=== PATIENT | female | born 1995 | race Asian ===

== ENCOUNTER 2017-02-11 10:42 | Outpatient (CLI) | payer MEDICAID | END 2017-02-11 10:43 | disposition home or self-care (01) | DX: R53.83 Other fatigue (principal) ==

== ENCOUNTER 2017-12-24 21:52 | Emergency (ER) | payer MEDICAID ==
[2017-12-24 21:59] VITALS: BP 116/75
[2017-12-24 22:17] LABS: HCG UR QUAL NEGATIVE
[2017-12-24] MEDS ORDERED: HYDROcod/ACETAM 5/325 MG TABLET PO STA (22:36)
[2017-12-24] MEDS ORDERED: AMOXICILLIN 250 MG CAPSULE PO STA (22:36)
[2017-12-24] MEDS ORDERED: DEXAMETHASONE 10 MG/ML VIAL PO STA (22:36)
--- NOTE | 2017-12-24 22:39 | ED Physician Documentation ---
PD HPI URI - Stated complaint Stated Complaint: SORE THROAT - Chief complaint Chief Complaint: Heent - History obtained from History obtained from: Patient - History of Present Illness Timing - onset: How many days ago (2-3) Timing duration: Days (2-3) Timing details: Gradual onset, Still present (worsening) Associated symptoms: Fever, Sore throat, Swollen nodes. No: Nasal congestion, Dry cough, NVD Contributing factors: No: Sick contact, Travel, Immunocompromised Similar symptoms before: Has not had sx before Recently seen: Not recently seen Review of Systems Constitutional: reports: Fever, Chills, Myalgias Nose: denies: Rhinorrhea / runny nose, Congestion Throat: reports: Sore throat, Swollen tonsils Respiratory: denies: Dyspnea, Cough PD PAST MEDICAL HISTORY - Past Medical History Past Medical History: No - Past Surgical History Past Surgical History: Yes - Present Medications Home Medications: Ambulatory Orders Medication Instructions Recorded Confirmed Amoxicillin 500 mg PO TID #20 capsule 12/24/17 Dexamethasone [Decadron] 4 mg PO DAILY #5 tablet 12/24/17 Tramadol HCl 50 mg PO Q6H PRN #15 tablet 12/24/17 - Allergies Allergies/Adverse Reactions: Allergies Allergy/AdvReac Type Severity Reaction Status Date / Time No Known Drug Allergies Allergy Verified 12/24/17 21:58 - Social History Does the pt smoke?: No Smoking Status: Never smoker Does the pt drink ETOH?: No Does the pt have substance abuse?: No - Immunizations Immunizations are current?: Yes - POLST Patient has POLST: No PD ED PE NORMAL - Vitals Vital signs reviewed: Yes - General General: Alert and oriented X 3, No acute distress, Well developed/nourished - HEENT HEENT: No: Pharynx benign (red and exudative tonsils, witout peritonsillar swelling. ) - Neck Neck: Supple, no meningeal sign, Other (anterior adenopathy) - Cardiac Cardiac: RRR, No murmur - Respiratory Respiratory: Clear bilaterally - Abdomen Abdomen: Soft, Non tender - Derm Derm: Normal color, Warm and dry, No rash - Extremities Extremities: No deformity, No tenderness to palpate, Normal ROM s pain Results - Vitals Vitals: Oxygen O2 Source Room air - Labs Labs: Laboratory Tests 12/24/17 12/24/17 22:00 22:00 Ur Specific Ronan 1.015 Urine HCG, Qual NEGATIVE Group A Strep Rapid POSITIVE H PD MEDICAL DECISION MAKING - ED course Complexity details: reviewed results (positive strep), considered differential, d/w patient Departure - Departure Disposition: 01 Home, Self Care Clinical Impression: Acute streptococcal tonsillitis Qualifiers: Streptococcal tonsillitis recurrence: non-recurrent Qualified Code(s): J03.00 - Acute streptococcal tonsillitis, unspecified Condition: Stable Record reviewed to determine appropriate education?: Yes Instructions: ED Strep Pharyngitis Conf Prescriptions: Amoxicillin 500 mg PO TID #20 capsule Dexamethasone [Decadron] 4 mg PO DAILY #5 tablet Tramadol HCl 50 mg PO Q6H PRN #15 tablet PRN Reason: Pain Comments: Drink lots of fluids. Tylenol or ibuprofen if needed for mild pains. At tramadol if needed for worse pain. Decadron steroid anti-inflammatory daily for 5 more days to decrease the swelling and discomfort. Amoxicillin 3 times a day for a week for the infection. It is okay to resume work after a full day on the antibiotics. Off work tomorrow and the next day if needed based on symptoms. Recheck if not improving well over the next few days. Forms: Activity restrictions Discharge Date/Time: 12/24/17 22:51
== END 2017-12-24 22:51 | disposition home or self-care (01) ==
LOC: ED 21:52
DX: J03.00 Acute streptococcal tonsillitis, unspecified (principal)
CPT/HCPCS: 81025; 87430; 99283; A9270

== ENCOUNTER 2018-04-07 10:13 | Emergency (ER) | payer MEDICAID ==
[2018-04-07] MEDS ORDERED: DEXAMETHASONE 10 MG/ML VIAL PO STA (13:27)
--- NOTE | 2018-04-07 13:30 | ED Physician Documentation ---
PD HPI HEENT - Stated complaint Stated Complaint: SORE THROAT - Chief complaint Chief Complaint: Heent - History obtained from History obtained from: Patient, Family - History of Present Illness Timing - onset: How many days ago (2) Timing - duration: Days (2) Timing - details: Gradual onset, Still present Location: Throat Improves: Medication Worsens: Swalllowing Associated symptoms: Congestion, Unable to swallow, Swollen nodes Similar symptoms before: Diagnosis (strep) Recently seen: Not recently seen - Additional information Additional information: 23-year-old female with a history of recurrent pharyngitis has a sore throat again with swollen tonsils and difficulty swallowing. She has had symptoms for about 2 days. She has chills. She denies any cough. She has had strep most recently in November of this year. Review of Systems Constitutional: reports: Chills, Fatigue Eyes: denies: Decreased vision Ears: denies: Ear pain Nose: reports: Congestion Throat: reports: Sore throat Cardiac: denies: Chest pain / pressure, Palpitations Respiratory: denies: Dyspnea, Cough GI: denies: Abdominal Pain, Nausea, Vomiting : denies: Dysuria, Frequency PD PAST MEDICAL HISTORY - Past Medical History Past Medical History: No - Past Surgical History Past Surgical History: Yes - Present Medications Home Medications: Ambulatory Orders Medication Instructions Recorded Confirmed Amox/Clav 875/125 [Augmentin 1 each PO Q12H #20 tablet 04/07/18 875/125] - Allergies Allergies/Adverse Reactions: Allergies Allergy/AdvReac Type Severity Reaction Status Date / Time No Known Drug Allergies Allergy Verified 12/24/17 21:58 - Social History Does the pt smoke?: No Smoking Status: Never smoker Does the pt drink ETOH?: No Does the pt have substance abuse?: No - Immunizations Immunizations are current?: Yes - POLST Patient has POLST: No PD ED PE NORMAL - Vitals Vital signs reviewed: Yes (hypertensive diastolic ) - General General: Alert and oriented X 3, No acute distress, Well developed/nourished - HEENT HEENT: Atraumatic, PERRL, EOMI, Ears normal, Other (There are 2+ cryptic tonsils with exudate. ) - Neck Neck: Supple, no meningeal sign, No bony TTP - Cardiac Cardiac: RRR, No murmur - Respiratory Respiratory: No respiratory distress, Clear bilaterally - Abdomen Abdomen: Soft, Non tender - Back Back: No CVA TTP, No spinal TTP - Derm Derm: Normal color, Warm and dry, No rash - Extremities Extremities: No deformity, No edema - Neuro Neuro: Alert and oriented X 3, No motor deficit, No sensory deficit, Normal speech Eye Opening: Spontaneous Motor: Obeys Commands Verbal: Oriented GCS Score: 15 - Psych Psych: Normal mood, Normal affect Results - Vitals Vitals: Vital Signs - 24 hr 04/07/18 10:33 Temperature 37.0 C Heart Rate 89 Respiratory 18 Rate Blood Pressure 115/89 H O2 Saturation 97 Oxygen O2 Source Room air - Labs Labs: Laboratory Tests 04/07/18 13:17 Group A Strep Rapid POSITIVE H PD MEDICAL DECISION MAKING - ED course Complexity details: reviewed results, re-evaluated patient, considered differential, d/w patient, d/w family ED course: 23 y/o female with a history of strep has another sore throat. She has a lot of exudate. - Sepsis Event Vital Signs: Vital Signs - 24 hr 04/07/18 10:33 Temperature 37.0 C Heart Rate 89 Respiratory 18 Rate Blood Pressure 115/89 H O2 Saturation 97 Oxygen O2 Source Room air Departure - Departure Disposition: 01 Home, Self Care Clinical Impression: Acute streptococcal tonsillitis Qualifiers: Streptococcal tonsillitis recurrence: recurrent Qualified Code(s): J03.01 - Acute recurrent streptococcal tonsillitis Instructions: ED Strep Pharyngitis Conf Follow-Up: [facility] [Provider Group] Prescriptions: Amox/Clav 875/125 [Augmentin 875/125] 1 each PO Q12H #20 tablet Forms: Activity restrictions
[2018-04-07 14:18] VITALS: BP 105/69
== END 2018-04-07 14:17 | disposition home or self-care (01) ==
LOC: ED 10:13
DX: J03.01 Acute recurrent streptococcal tonsillitis (principal)
CPT/HCPCS: 87430; 99283

== ENCOUNTER 2018-05-18 08:47 | Outpatient (CLI) | payer MEDICAID ==
--- NOTE | 2018-05-18 10:54 | Ultrasound Report ---
Procedure Date: 05/18/2018 Accession Number: [id number] / [id number] Procedure: US - OB First Trimester CPT Code: FULL RESULT: EXAM: FIRST TRIMESTER OBSTETRIC ULTRASOUND (Less than 11 weeks) EXAM DATE: 05/18/2018 10:25 AM. CLINICAL HISTORY: ENCOUNTER FOR TEST, RESULT POSITIVE. LMP: 03/18/2018. COMPARISONS: None. TECHNIQUE: Transabdominal and transvaginal ultrasound examination with static image documentation. CLINICAL DATES: EGA 8 weeks 5 days with MAME 12/23/2018 based on LMP. ASSESSMENT: Gestational Sac: Single intrauterine. Mean gestational sac diameter: 31.4 mm = 8 weeks 0 days. Embryo: CRL (crown-rump length) 15.8 mm = 8 weeks 0 days. Cardiac activity: 161 beats per minute. Yolk sac: 3.1 mm. Amniotic fluid: Not accurately assessed at this gestational age. Early placenta: Not visible at this gestational age. Other: No perigestational fluid collection demonstrated. MATERNAL STRUCTURES: Uterus: Anteverted. Unremarkable. Cervix: Closed. Right Ovary/Adnexa: Unremarkable. The ovary measures 3.9 x 2.9 x 1.8 cm, volume 10.6 cc. Left Ovary/Adnexa: Unremarkable. The ovary measures 3.3 x 2.7 x 2.6 cm, volume 12.1 cc. 1.8 x 1.3 x 1.4 cm corpus luteum cyst Free Fluid: None. Other: Incidental note made of a possible 4 mm umbilical cord cyst.. IMPRESSION: 1. Single intrauterine at EGA 8 weeks 0 days with MAME 12/28/2018 based on crown-rump length, which is concordant with clinical dates. 2. Assigned dating is MAME 12/23/2018 based on LMP. CALI
== END 2018-05-18 08:48 | disposition home or self-care (01) ==
LOC: DI 08:47
PROVIDERS: ATTEND Nurse Practitioner Obstetrics & Gynecology
DX: Z32.01 Encounter for pregnancy test, result positive (principal)
CPT/HCPCS: 76801; 76817

== ENCOUNTER 2018-05-29 10:08 | Outpatient (CLI) | payer MEDICAID ==
[2018-05-29 15:11] LABS: MUDS CUTOFF CONCENTRATIONS CUTOFF CONC BELOW:
[2018-05-29 15:36] LABS: AMPHETAMINE SCREEN,URINE NEGATIVE (NEGATIVE); BENZODIAZEPINES SCREEN, URINE NEGATIVE (NEGATIVE); COCAINE SCREEN URINE NEGATIVE (NEGATIVE); METHADONE SCREEN, URINE NEGATIVE (NEGATIVE); METHAMPHETAMINES SCREEN, URINE NEGATIVE (NEGATIVE); OPIATE SCREEN, URINE NEGATIVE (NEGATIVE); OXYCODONE SCREEN, URINE NEGATIVE (NEGATIVE); PROPOXYPHENE SCREEN, URINE NEGATIVE (NEGATIVE); TRICYCLIC ANTIDEPRESSANT,URINE NEGATIVE (NEGATIVE)
== END 2018-05-29 10:09 | disposition home or self-care (01) ==
LOC: LAB.R 10:08
PROVIDERS: ATTEND Nurse Practitioner Obstetrics & Gynecology
DX: Z36.9 Encounter for antenatal screening, unspecified (principal)
CPT/HCPCS: 80306

== ENCOUNTER 2018-06-16 10:02 | Outpatient (CLI) | payer MEDICAID ==
[2018-06-16 10:33] LABS: BASOPHILS % (AUTO) 0.4 %; EOSINOPHILS % (AUTO) 0.6 %; HGB - HEMOGLOBIN 12.8 g/dL (12.0-16.0); LYMPHOCYTES # (AUTO) 1.2 10^3/uL (1.5-3.5); LYMPHOCYTES % (AUTO) 18.1 %; MEAN CORPUSCULAR HEMOGLOBIN 30.1 pg (27.0-31.0); MEAN CORPUSCULAR VOLUME 88.6 fL (81.0-99.0); MEAN PLATELET VOLUME 8.5 fL (7.9-10.8); MONOCYTES # (AUTO) 0.5 10^3/uL (0.0-1.0); MONOCYTES % (AUTO) 8.1 %; NEUTROPHILS # (AUTO) 4.6 10^3/uL (1.5-6.6); NEUTROPHILS % (AUTO) 72.8 %; PLT - PLATELET COUNT 230 10^3/uL (130-450); RED BLOOD COUNT 4.25 10^6/uL (4.20-5.40); RED CELL DISTRIBUTION WIDTH 12.7 % (12.0-15.0); WHITE BLOOD COUNT 6.4 x10^3/uL (4.8-10.8)
[2018-06-16 11:02] LABS: BILIRUBIN,URINE NEGATIVE (NEGATIVE); GLUCOSE, URINE (UA) NEGATIVE (NEGATIVE); KETONES,URINE (UA) NEGATIVE (NEGATIVE); LEUKOCYTE ESTERASE, URINE TRACE (NEGATIVE); NITRITE,URINE NEGATIVE (NEGATIVE); OCCULT BLOOD,URINE TRACE-INTA (NEGATIVE); PH,URINE 6.5 PH (5.0-7.5); PROTEIN,URINE NEGATIVE (NEGATIVE); UROBILINOGEN,URINE 0.2 (NORMAL) E.U./dL (NORMAL)
[2018-06-16 11:07] LABS: CLARITY,URINE HAZY (CLEAR)
[2018-06-16 11:20] LABS: AMORPHOUS SEDIMENT,UR Marked /LPF; BACTERIA,URINE Many /HPF (None Seen); MUCUS,URINE Moderate Strands; RBC,URINE 0-5 /HPF (0-5); SQUAMOUS EPITHELIAL CELL,UR MOD Squamous (<= Few)
[2018-06-17 13:31] LABS: HEPATITIS B SURFACE ANTIGEN NON-REACTIVE (NON-REACTIVE); HEPATITIS C ANTIBODY NON-REACTIVE (NON-REACTIVE)
[2018-06-17 14:47] LABS: HIV AG/AB 4TH GEN NON-REACTIVE (NON-REACTIVE)
== END 2018-06-16 10:03 | disposition home or self-care (01) ==
LOC: LAB 10:02
PROVIDERS: ATTEND Nurse Practitioner Obstetrics & Gynecology
DX: Z36.9 Encounter for antenatal screening, unspecified (principal)
CPT/HCPCS: 36415; 81001; 81599; 85025; 86592; 86762; 86803; 86850; 86900; 86901; 87340; 87389

== ENCOUNTER 2018-08-04 07:23 | Outpatient (CLI) | payer MEDICAID ==
--- NOTE | 2018-08-04 16:15 | Ultrasound Report ---
Reason: ENCOUNTER FOR SCREENING,UNSPECIFIED Procedure Date: 08/04/2018 Accession Number: [id number] / [id number] Procedure: US - OB Detailed Eval CPT Code: FULL RESULT: EXAM: COMPLETE OBSTETRICAL ULTRASOUND EXAM DATE: 08/04/2018 08:00 AM. CLINICAL HISTORY: anatomic survey. COMPARISON: 05/18/2018. TECHNIQUE: Real-time sonographic evaluation of the fetus performed by the service attendant cafeteria. Multiple community representative static images were saved for review. DATING: Established EGA 20 weeks 0 days with MAME 12/23/2018 based on obstetric provider supplied established due date. EGA 19 weeks 1 day with MAME 12/28/2018 based on first trimester ultrasound. EGA 18 weeks 5 days with MAME 12/31/2018 based on the current ultrasound. GENERAL EVALUATION [place] . Cardiac activity: 159 bpm. movement: Visualized. Presentation: Variable Placenta: Anterior position. No evidence for previa. Umbilical cord: Normally originating and inserting cord is identified. Presence of a 3 vessel cord is not definitely established due to motion, visualization was inadequate. Amniotic fluid: RUSS 12.6 MVP 4.4 cm. BIOMETRY Bi-Parietal Diameter (BPD): 4.1 cm, 18 weeks 2 days Head Circumference (HC): 15.6 cm, 18 weeks 3 days Abdominal Circumference (AC): 13.4 cm, 19 weeks 1 day Femur Length (FL): 2.9 cm, 18 weeks 6 days Estimated Weight: 265 g, 9th percentile for 20 weeks 0 days. ANATOMY Facial structures including the nose and lips were not adequately visualized. The intracranial structures, spine, 4 chamber heart and outflow tracts, stomach, abdominal wall and cord insertion, diaphragm, kidneys, bladder, and extremities were visualized and demonstrate no abnormality. MATERNAL STRUCTURES Uterus: Unremarkable. Cervix: Long and closed. Transabdominal length 4.7 cm. Right ovary/adnexa: Unremarkable. Left ovary/adnexa: Unremarkable. Free fluid: None. IMPRESSION: 1. Bet[place] live intrauterine with gestational age 20 weeks 0 days based on the obstetric provider supplied established due date. 2. Estimated weight is at the 9th percentile for the obstetric provider supplied established due date. 3. Incomplete anatomic survey with nonvisualization/inadequate visualization of the facial profile including the lips and nasal bone. Otherwise, normal anatomic survey. No anatomic abnormalities are detected at this time. 4. Incomplete evaluation of the umbilical cord with normal origin and insertion. Presence of 3 vessel cord is not definitely established. Recommendation: The patient could return after 2 weeks time for completion of the anatomic survey and an interval assessment of growth. RADIA The above findings small estimated weight and an incomplete anatomy assessment were discussed with Dina Alfredo by Dr. Sravan Elias at 16:12 hrs on 08/04/18.
== END 2018-08-04 07:24 | disposition home or self-care (01) ==
LOC: DI 07:23
PROVIDERS: ATTEND Nurse Practitioner Obstetrics & Gynecology
DX: Z36.9 Encounter for antenatal screening, unspecified (principal)
CPT/HCPCS: 76811

== ENCOUNTER 2018-08-29 08:48 | Emergency (ER) | payer MEDICAID ==
[2018-08-29 09:01] VITALS: BP 115/70
--- NOTE | 2018-08-29 09:43 | ED Physician Documentation ---
PD HPI URI - Stated complaint Stated Complaint: SORE THROAT - Chief complaint Chief Complaint: Heent - History obtained from History obtained from: Patient - History of Present Illness Timing - onset: How many days ago (few days of congestion and had a fever first day; now with sore throat for a day.) Timing duration: Days Timing details: Gradual onset, Still present Associated symptoms: Fever, Nasal congestion, Sore throat, Swollen nodes, Dry cough Contributing factors: No: Sick contact, Travel Similar symptoms before: Has not had sx before Recently seen: Not recently seen Review of Systems Constitutional: reports: Fever, Chills Nose: reports: Rhinorrhea / runny nose, Congestion Throat: reports: Sore throat Cardiac: denies: Chest pain / pressure GI: reports: Nausea. denies: Abdominal Pain, Vomiting, Diarrhea : reports: Now EGA (23). 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 ) - Past Surgical History Past Surgical History: Yes - Present Medications Home Medications: Ambulatory Orders Medication Instructions Recorded Confirmed Pnv No.122/Iron/Folic Acid 08/29/18 [ Multi Tablet] - Allergies Allergies/Adverse Reactions: Allergies Allergy/AdvReac Type Severity Reaction Status Date / Time No Known Drug Allergies Allergy Verified 08/29/18 09:01 - Social History Does the pt smoke?: No Smoking Status: Never smoker Does the pt drink ETOH?: No Does the pt have substance abuse?: No - Immunizations Immunizations are current?: Yes - POLST Patient has POLST: No PD ED PE NORMAL - Vitals Vital signs reviewed: Yes - General General: Alert and oriented X 3, No acute distress, Well developed/nourished - HEENT HEENT: Ears normal. No: Pharynx benign (tonsils enlarged moderately without exudate. ) - Neck Neck: Supple, no meningeal sign, No adenopathy - Cardiac Cardiac: RRR, No murmur - Respiratory Respiratory: Clear bilaterally - Abdomen Abdomen: Soft, Non tender, Other (gravid with fundus above umbilicus) - Derm Derm: Normal color, Warm and dry - Neuro Neuro: Alert and oriented X 3, No motor deficit, Normal speech Results - Vitals Vitals: Vital Signs - 24 hr 08/29/18 09:00 Temperature 36.9 C Heart Rate 94 Respiratory 18 Rate Blood Pressure 115/70 O2 Saturation 99 Oxygen O2 Source Room air - Labs Labs: Laboratory Tests 08/29/18 09:05 Group A Strep Rapid Negative PD MEDICAL DECISION MAKING - ED course Complexity details: reviewed results (strep negative. presume viral for now. ), re-evaluated patient, considered differential, d/w patient Departure - Departure Disposition: 01 Home, Self Care Clinical Impression: Upper respiratory infection Qualifiers: URI type: unspecified URI Qualified Code(s): J06.9 - Acute upper respiratory infection, unspecified Condition: Stable Record reviewed to determine appropriate education?: Yes Instructions: ED Pharyngitis Viral Report Pending Comments: Drink lots of fluids. Tylenol every 4-6 hours if needed for pains. For now you could use ibuprofen or Aleve as well if needed for pains. No anti- inflammatories after about 30 weeks . Recheck if not improving over the next several days. The throat culture will result in 2 days and we will call you if it positive for bacterial cause. For now will presume a viral ill ness. Discharge Date/Time: 08/29/18 10:05
[2018-08-29] MEDS ORDERED: DEXAMETHASONE 10 MG/ML VIAL PO STA (09:55)
[2018-08-29] MEDS ORDERED: ACETAMINOPHEN 325 MG TABLET PO STA (09:55)
== END 2018-08-29 10:05 | disposition home or self-care (01) ==
LOC: ED 08:48
DX: O99.89 Other specified diseases and conditions complicating pregnancy, childbirth and the puerperium (principal); J06.9 Acute upper respiratory infection, unspecified; Z3A.23 23 weeks gestation of pregnancy
CPT/HCPCS: 87070; 87430; 99282; 99283

== ENCOUNTER 2018-09-08 09:28 | Outpatient (CLI) | payer MEDICAID ==
--- NOTE | 2018-09-08 16:57 | Ultrasound Report ---
Reason: ENCOUNTER FOR OTHER SCREENING FOLLOW UP Procedure Date: 09/08/2018 Accession Number: [id number] / [id number] Procedure: US - OB F/U or Repeat CPT Code: FULL RESULT: EXAM: COMPLETE OBSTETRICAL ULTRASOUND EXAM DATE: 09/08/2018 12:54 PM. CLINICAL HISTORY: anatomic survey, completion of. COMPARISON: 08/04/2018. TECHNIQUE: Real-time sonographic evaluation of the fetus performed by the manager flight operations. Multiple insurance representative static images were saved for review. DATING: Established EGA 24 weeks 6 days with MAME 12/23/2018 based on referring provider input. EGA 23 weeks 3 days with MAME 01/02/2019 based on the current ultrasound. GENERAL EVALUATION [place] . Cardiac activity: 157 bpm. movement: Visualized. Presentation: Vertex. Placenta: Anterior position. No evidence for previa. Amniotic fluid: RUSS 10.5 MVP 2.9 cm. BIOMETRY Bi-Parietal Diameter (BPD): 5.9 cm, 23 weeks 2 days. Head Circumference (HC): 21.1 cm, 23 weeks 0 days. Abdominal Circumference (AC): 19.6 cm, 24 weeks 2 days. Femur Length (FL): 4.2 cm, 23 weeks 4 days. Normal 3-vessel umbilical cord is identified. Estimated Weight: 640 g, 30th percentile for 24 weeks 6 days. ANATOMY Completion of the anatomic survey was attempted MATERNAL STRUCTURES Uterus: Unremarkable. Cervix: Long and closed. Transabdominal length 3.6 cm. Free fluid: None. IMPRESSION: 1. [place] live intrauterine with gestational age 24 weeks 6 days based on the referring provider. 2. Estimated weight is within expected limits for assigned dating. 3. Normal 3-vessel cord. 4. The nose and lips/facial profile of the fetus were once again insufficiently visualized. No abnormality was identified on visualized portions. RADIA
== END 2018-09-08 09:29 | disposition home or self-care (01) ==
LOC: DI 09:28
PROVIDERS: ATTEND Registered Nurse
DX: Z36.2 Encounter for other antenatal screening follow-up (principal); Z3A.24 24 weeks gestation of pregnancy
CPT/HCPCS: 76816

== ENCOUNTER 2018-10-13 08:00 | Outpatient (CLI) | payer MEDICAID | END 2018-10-13 23:59 | disposition home or self-care (01) | LOC: LAB.R 08:00 | PROVIDERS: ATTEND Nurse Practitioner Obstetrics & Gynecology | DX: R82.79 Other abnormal findings on microbiological examination of urine (principal) | CPT/HCPCS: 87086 ==

== ENCOUNTER 2018-10-21 08:00 | Outpatient (CLI) | payer MEDICAID ==
[2018-10-21 12:35] LABS: HGB - HEMOGLOBIN 11.5 g/dL (12.0-16.0); MEAN CORPUSCULAR HEMOGLOBIN 29.7 pg (27.0-31.0); MEAN CORPUSCULAR HGB CONC 33.3 g/dL (32.0-36.0); MEAN CORPUSCULAR VOLUME 89.2 fL (81.0-99.0); RED BLOOD COUNT 3.87 10^6/uL (4.20-5.40); RED CELL DISTRIBUTION WIDTH 12.6 % (12.0-15.0); WHITE BLOOD COUNT 6.4 x10^3/uL (4.8-10.8)
== END 2018-10-21 23:59 | disposition home or self-care (01) ==
LOC: LAB.N 08:00
PROVIDERS: ATTEND Nurse Practitioner Obstetrics & Gynecology
DX: Z36.2 Encounter for other antenatal screening follow-up (principal)
CPT/HCPCS: 36415; 82950; 85027; 86850

== ENCOUNTER 2018-10-26 08:42 | Outpatient (CLI) | payer MEDICAID ==
--- NOTE | 2018-10-26 12:00 | Ultrasound Report ---
Reason: ENCTR FOR OTHER ANTENATAKL SCREENING FUP Procedure Date: 10/26/2018 Accession Number: [id number] / [id number] Procedure: US - OB F/U or Repeat CPT Code: FULL RESULT: EXAM: FOLLOW-UP OBSTETRICAL ULTRASOUND EXAM DATE: 10/26/2018 08:58 AM. CLINICAL HISTORY: Completion of anatomy survey, nose/lips and profile view. COMPARISON: OB F/U OR REPEAT 09/08/2018 1:16 PM. TECHNIQUE: Real-time sonographic evaluation of the fetus performed by the tire builder operator. Multiple personal financial representative static images were saved for review. DATING: Established EGA 31 weeks 5 days with MAME 12/23/2018 based on LMP. EGA 30 weeks 1 day with MAME 01/03/2019 based on the current ultrasound. GENERAL EVALUATION [place] . Cardiac activity: 138 bpm. movement: Visualized. Presentation: Cephalic. Placenta: Anterior position. Amniotic fluid: Normal. RUSS 14.2 cm. MVP 6.0 cm. BIOMETRY Bi-Parietal Diameter (BPD): 7.6 cm, 30 weeks 4 days Head Circumference (HC): 27.7 cm, 30 weeks 2 days Abdominal Circumference (AC): 26.5 cm, 30 weeks 4 days Femur Length (FL): 5.7 cm, 30 weeks 1 day Estimated Weight: 1579 g, 11th percentile for 31 weeks 5 days. ANATOMY The nose and upper lip are adequately visualized and normal. The lower lip and full profile view are once again not adequately established due to the patient's head being tucked deep in the maternal pelvis. IMPRESSION: 1. Bet[place] live intrauterine with gestational age 31 weeks 5 days based on LMP. 2. The current weight has dropped to the 11th percentile. 3. Decreased interval growth compared to 09/08/2018. 4. Only partial completion of the anatomy survey with normal upper lip and nose. RADIA The call report notification system was initiated by Dr. Sravan Elias at 11:46 AM hrs on 10/26/2018. The above findings of less than expected interval growth were discussed with nurse Reis by Dr. Sravan Elias at 11:58 AM hrs on 10/26/2018.
== END 2018-10-26 08:43 | disposition home or self-care (01) ==
LOC: DI 08:42
PROVIDERS: ATTEND Nurse Practitioner Obstetrics & Gynecology
DX: Z36.2 Encounter for other antenatal screening follow-up (principal); Z3A.31 31 weeks gestation of pregnancy
CPT/HCPCS: 76816

== ENCOUNTER 2018-10-27 09:31 | Outpatient (CLI) | payer MEDICAID | END 2018-10-27 09:32 | disposition home or self-care (01) | LOC: LAB 09:31 | PROVIDERS: ATTEND Nurse Practitioner Obstetrics & Gynecology | DX: O99.810 Abnormal glucose complicating pregnancy (principal) | CPT/HCPCS: 36415; 82951; 82952 ==

== ENCOUNTER 2018-11-27 11:15 | Outpatient (CLI) | payer MEDICAID ==
--- NOTE | 2018-11-27 14:24 | Ultrasound Report ---
Reason: ENCOUNTER FOR OTHER SCREENING, FOLLOW UP Procedure Date: 11/27/2018 Accession Number: [id number] / [id number] Procedure: US - OB F/U or Repeat CPT Code: FULL RESULT: EXAM: FOLLOW-UP OBSTETRICAL ULTRASOUND EXAM DATE: 11/27/2018 01:09 PM. CLINICAL HISTORY: Encounter for other screening, follow up. COMPARISON: OB F/U OR REPEAT 10/26/2018 8:58 AM. TECHNIQUE: Real-time sonographic evaluation of the fetus performed by the rack maker. Multiple collections representative static images were saved for review. DATING: Established EGA 36 weeks 2 days with MAME 12/23/2018 based on LMP. EGA 34 weeks 3 days with MAME 01/08/2019 based on the current ultrasound. GENERAL EVALUATION [place] . Cardiac activity: 157 bpm. movement: Visualized. Presentation: Cephalic. Placenta: Anterior position. Amniotic fluid: Normal. RUSS 11.2 cm. MVP 4.9 cm. BIOMETRY Bi-Parietal Diameter (BPD): 8.2 cm, 32 weeks 6 days Head Circumference (HC): 30.4 cm, 33 weeks 5 days Abdominal Circumference (AC): 32.1 cm, 35 weeks 6 days Femur Length (FL): 6.5 cm, 33 weeks 4 days Estimated Weight: 2528 g, 18th percentile for 36 weeks 2 days. MATERNAL STRUCTURES Long and closed cervix, 4.6 cm. IMPRESSION: 1. Bet[place] live intrauterine with gestational age 36 weeks 2 days based on LMP. 2. Estimated weight is within expected limits for assigned dating. 3. Normal interval growth compared to 10/26/2018. This represents an improvement in the previously recorded percentile. RADIA
== END 2018-11-27 11:16 | disposition home or self-care (01) ==
LOC: DI 11:15
PROVIDERS: ATTEND Registered Nurse
DX: Z36.2 Encounter for other antenatal screening follow-up (principal)
CPT/HCPCS: 76816

== ENCOUNTER 2018-11-30 08:00 | Outpatient (CLI) | payer MEDICAID | END 2018-11-30 23:59 | disposition home or self-care (01) | LOC: LAB.R 08:00 | PROVIDERS: ATTEND Nurse Practitioner Obstetrics & Gynecology | DX: Z36.2 Encounter for other antenatal screening follow-up (principal) | CPT/HCPCS: 87491; 87591; 87797 ==

== ENCOUNTER 2018-11-30 09:59 | Outpatient (CLI) | payer MEDICAID ==
[2018-12-01 14:15] LABS: HEPATITIS C ANTIBODY NON-REACTIVE (NON-REACTIVE)
[2018-12-01 15:11] LABS: HIV AG/AB 4TH GEN NON-REACTIVE (NON-REACTIVE)
[2018-12-02 11:56] LABS: HSV 2 IGG TYPE SPECIFIC AB <0.90 index
== END 2018-11-30 10:00 | disposition home or self-care (01) ==
LOC: LAB 09:59
PROVIDERS: ATTEND Nurse Practitioner Obstetrics & Gynecology
DX: Z36.2 Encounter for other antenatal screening follow-up (principal)
CPT/HCPCS: 36415; 81599; 86592; 86695; 86696; 86803; 87389; 87491; 87591; 87797

== ENCOUNTER 2018-12-09 10:51 | Outpatient (CLI) | payer MEDICAID ==
[2018-12-09 11:47] LABS: CREATININE,URINE 70.8 mg/dL
[2018-12-09 11:53] LABS: TOTAL PROTEIN,URINE TIMED < 6 mg/dL
[2018-12-09 11:59] LABS: BASOPHILS % (AUTO) 0.1 %; EOSINOPHILS % (AUTO) 0.6 %; HGB - HEMOGLOBIN 11.8 g/dL (12.0-16.0); LYMPHOCYTES # (AUTO) 0.9 10^3/uL (1.5-3.5); MEAN CORPUSCULAR HEMOGLOBIN 28.1 pg (27.0-31.0); MEAN CORPUSCULAR HGB CONC 32.5 g/dL (32.0-36.0); MEAN CORPUSCULAR VOLUME 86.4 fL (81.0-99.0); MEAN PLATELET VOLUME 9.2 fL (7.9-10.8); MONOCYTES # (AUTO) 0.7 10^3/uL (0.0-1.0); MONOCYTES % (AUTO) 8.6 %; NEUTROPHILS # (AUTO) 6.3 10^3/uL (1.5-6.6); NEUTROPHILS % (AUTO) 79.7 %; PLT - PLATELET COUNT 212 10^3/uL (130-450); RED BLOOD COUNT 4.21 10^6/uL (4.20-5.40); RED CELL DISTRIBUTION WIDTH 12.6 % (12.0-15.0); WHITE BLOOD COUNT 7.9 x10^3/uL (4.8-10.8)
[2018-12-09 12:11] LABS: ALBUMIN 2.6 g/dL (3.2-5.5); ALBUMIN/GLOBULIN RATIO 0.8 (1.0-2.2); BILIRUBIN,TOTAL 0.5 mg/dL (0.2-1.0); CALCIUM 8.9 mg/dL (8.5-10.3); CREATININE 0.6 mg/dL (0.4-1.0)
[2018-12-09 13:06] VITALS: BP 120/77
== END 2018-12-09 12:55 | disposition home or self-care (01) ==
LOC: WFO 10:51 → FBP 10:52 → WFO 12:55
PROVIDERS: ATTEND Obstetrics & Gynecology
DX: O26.893 Other specified pregnancy related conditions, third trimester (principal); R03.0 Elevated blood-pressure reading, without diagnosis of hypertension; Z3A.38 38 weeks gestation of pregnancy
CPT/HCPCS: 36415; 59025; 80053; 82570; 84156; 85025

== ENCOUNTER 2018-12-21 07:54 | Inpatient (IN) | payer OTHER, MEDICAID ==
[2018-12-21] MEDS ORDERED: ONDANSETRON 4 MG/2 ML VIAL IVP PRN (08:15)
[2018-12-21] MEDS ORDERED: SODIUM CHLORIDE FLUSH 0.9% 10 ML SYRINGE IVP PRN (08:15)
[2018-12-21] MEDS ORDERED: OXYTOCIN/SODIUM CHLORIDE 500 ML IV ONE ×2 (08:34→19:53)
[2018-12-21] MEDS ORDERED: fentaNYL 100 MCG/2 ML VIAL IVP PRN (08:38)
[2018-12-21] MEDS ORDERED: LACTATED RINGERS 1,000 ML IV SCH (09:00)
[2018-12-21] MEDS: miSOPROStol 100 MCG TABLET BC SCH ×3 (09:21→19:41)
[2018-12-21] MEDS: SODIUM CHLORIDE FLUSH 0.9% 10 ML SYRINGE IVP SCH ×2 (09:24→18:50)
[2018-12-21 09:29] LABS: BASOPHILS # (AUTO) 0.1 10^3/uL (0.0-0.1); BASOPHILS % (AUTO) 0.8 %; EOSINOPHILS % (AUTO) 0.3 %; HGB - HEMOGLOBIN 11.9 g/dL (12.0-16.0); LYMPHOCYTES % (AUTO) 12.4 %; MEAN CORPUSCULAR HEMOGLOBIN 28.8 pg (27.0-31.0); MEAN CORPUSCULAR HGB CONC 33.7 g/dL (32.0-36.0); MEAN CORPUSCULAR VOLUME 85.6 fL (81.0-99.0); MEAN PLATELET VOLUME 9.9 fL (7.9-10.8); MONOCYTES # (AUTO) 0.6 10^3/uL (0.0-1.0); MONOCYTES % (AUTO) 7.3 %; NEUTROPHILS # (AUTO) 6.4 10^3/uL (1.5-6.6); NEUTROPHILS % (AUTO) 79.2 %; PLT - PLATELET COUNT 264 10^3/uL (130-450); RED BLOOD COUNT 4.12 10^6/uL (4.20-5.40); RED CELL DISTRIBUTION WIDTH 13.5 % (12.0-15.0); WHITE BLOOD COUNT 8.1 x10^3/uL (4.8-10.8)
--- NOTE | 2018-12-21 12:52 | HISTORY & PHYSICAL EXAMINATION ---
Admit History - Visit Reason Visit Reason: Other - : 1 Parity: 0 Premature: 0 Ectopic: 0 : 0 Care: positive: [facility] Risk/History: positive: None Complications This : positive: None Smoking Status: Never smoker - Mother's Labs Mother's Blood Type: positive: A Mother's RH: positive: Positive GBS: positive: Group B Step Negative Rubella Status: positive: Immune Meds/Allgy - Home Medications Home Medications: Ambulatory Orders Medication Instructions Recorded Confirmed Pnv No.122/Iron/Folic Acid 08/29/18 [ Multi Tablet] - Allergies Allergies/Adverse Reactions: Allergies Allergy/AdvReac Type Severity Reaction Status Date / Time No Known Drug Allergies Allergy Verified 08/29/18 09:01 Review of Systems - Constitutional Constitutional: denies: Fatigue, Fever, Chills, Malaise - Eyes Eyes: denies: Blurred vision, Spots in vision, Dipolpia - Cardiovascular Cariovascular: denies: Irregular heart rate, Palpitations, Chest pain, Edema - Respiratory Respiratory: denies: Cough, SOB at rest - Gastrointestinal Gastrointestinal: denies: Abdominal pain, Constipation, Diarrhea, Nausea, Vomiting - Genitourinary Genitourinary: denies: Dysuria - Integumentary Integumentary: denies: Rash, Pruritis - Neurological Neurological: denies: Headache, Dizziness - Psychiatric Psychiatric: denies: Depression, Anxiety Physical - Abdominal Exam Contraction Frequency (min/apart): infrequent Contraction Intensity: positive: Mild Uterine Resting Tone: positive: Soft - Monitoring Strip Review: positive: Category I - Presentation Presentation: positive: Vertex - Vaginal Exam Membranes: positive: Membranes intact Dilation (in cm): 1 Effacement (%): 85 Station: positive: 1 Cervical Position: positive: Midposition - Speculum Exam Speculum Exam Performed: positive: No Plan for Labor - Plan For Labor I expect patient to be DC'd or transferred within 96 hours.: Yes Plan for Labor: HPI: This 23yo @ 39.5wks gestation presented at 0800 non 12/21/2018 for preinduction cervical ripening in anticipation for induction of labor. She denies MANNING, visual changes, RUQ or epigastric pain. Denies VB or Lof. Some mild cramping upon arrival but nothing overly uncomfortable. Reports +FM. Denies VB or Lof. She has been a patient of [facility] through the duration of her and she is dated by a first trimester U/S which was c/w LMP dating. Her has been uncomplicated with the exception of an isolated incident of elevated BP at term gestation. She also had an impaired 1 hour GTT but her 3 hour GTT was WNL. 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 She did elect to take acyclovir beginning at 36wks for prophylaxis despite never having an outbreak. She is a healthy adult with no hx of chronic or ongoing medical condition/PMHx. She received Tdap vaccination 10/13/2018. She is GBS negative All labs were WNL. Blood type A+, antibody neg. Rubella immune. She is a nonsmoker and has never smoked. Denies ETOH or IVDA. Good family support - FOB not involved. Assessment: 23yo @ 39.5wks gestation by L=early U/S GBS negative SVE /+1, midposition, medium consistency, vertex, BOW intact P: Observation status with pre-induction cervical ripening with misoprostol Continuous monitoring Plan AROM at next check with change Anticipate spontaneous vaginal delivery.
--- NOTE | 2018-12-21 13:04 | PROVIDER PROGRESS NOTE ---
Labor Progress Note - Uterine Monitoring Uterine Monitoring Mode: positive: External toco Contraction Frequency (min/apart): 2-3 Contraction Intensity: positive: Mild to moderate Uterine Resting Tone: positive: Soft - Monitoring Monitor Mode: positive: External ultrasound Heart Rate Baseline: 145 Heart Rate Variability: positive: Moderate (6-25 bmp) Accelerations: positive: Present, 15x15 Decelerations: positive: None Strip Review: positive: Category I - Vaginal Exam Dilation (in cm): 2 Effacement (%): 90 Station: 1 Cervical Position: Midposition - Labor Progress Note Labor Progress Note/Additional Text: S: Sitting in bed comfortably chatting with family members who are supportive at the bedside. Feeling some increased cramping but nothing overly uncomfortable. Denies concerns. Mood is good. O: Contractions palpate mild every 2-6 minutes with soft resting tone. FHR baseline 145, moderate variability, + accels, no decels. SVE 2/90/+1, vertex, midposition, soft AROM moderate amount of clear fluid A: 23yo @ 39.5wks gestation by LMP Pre-induction cervical ripening with misoprostol 50mcg BC x 1 GBS negative Early labor P: Continue pre-induction cervical ripening. Continuous monitoring. Anticipate spontaneous vaginal delivery. Reevaluate in 4 hours or sooner PRN.
--- NOTE | 2018-12-21 18:11 | PROVIDER PROGRESS NOTE ---
Labor Progress Note - Uterine Monitoring Uterine Monitoring Mode: positive: External toco Contraction Frequency (min/apart): 2-5 Contraction Intensity: positive: Strong Uterine Resting Tone: positive: Soft - Monitoring Monitor Mode: positive: External ultrasound Heart Rate Baseline: 150 Heart Rate Variability: positive: Moderate (6-25 bmp) Accelerations: positive: Present, 15x15 Decelerations: positive: Variable, Intermittent (<50% x20 min) Strip Review: positive: Category I - Vaginal Exam Dilation (in cm): 8 Effacement (%): 100 Station: 2 Cervical Position: Anterior - Labor Progress Note Labor Progress Note/Additional Text: S: Breathing through contractions with family supportive at the bedside. Feeling majority of pain in lower abdomen. Denies back pain. Desires to get in [facility] for pain management. Did not like nitrous oxide and felt it did not work well. O: SVE 8/100/+2, vertex. Contractions palpate firm every 2-5 minutes with soft resting tone. FHR baseline 150s with moderate variability, occasional variable decelerations A: 23yo @ 39.5wks gestation by LMP GBS neg Active labor FHR Category I P: Continuous monitoring [facility] for [facility] management. Anticipate spontaneous vaginal delivery Reevaluate in 2 hours or sooner PRN.
[2018-12-21] MEDS ORDERED: LIDOCAINE-MPF 1% 30 ML VIAL ONE (19:39)
[2018-12-21] MEDS ORDERED: HYDROcod/ACETAM 5/325 MG TABLET PO PRN (19:54)
[2018-12-21] MEDS ORDERED: HYDROCORTISONE 1% CREAM 28 GM TUBE PR PRN (19:54)
[2018-12-21] MEDS ORDERED: WITCH HAZEL/GLYCERIN 1 EACH MED..PAD TOP PRN (19:54)
[2018-12-21] MEDS ORDERED: OXYTOCIN/SODIUM CHLORIDE 500 ML IV PRN ×2 (19:55→19:57)
[2018-12-21] MEDS ORDERED: LIDOCAINE 1% 50 ML MDV TD ONE (19:57)
[2018-12-21] MEDS: ACETAMINOPHEN 500 MG TABLET PO SCH (20:11)
[2018-12-21] MEDS: DOCUSATE SODIUM 100 MG CAPSULE PO SCH (20:11)
--- NOTE | 2018-12-21 20:11 | DELIVERY NOTE ---
Delivery Note - Labor Labor: positive: Augmented by ARM, Other - Delivery Method Delivery Method: positive: Spontaneous vaginal delivery - Presentation Presentation: positive: Vertex, SOLITARIO - right occiput anterior - Nuchal Cord Nuchal Cord: positive: None - Amniotic Fluid Description Amniotic Fluid Description: positive: Clear - Episiotomy Type Episiotomy Type: positive: None - Laceration Laceration: positive: 1st degree, 2nd degree, Perineal, Periurethral, Vaginal - Suture Suture Type: positive: Vicryl Suture Size: positive: 2-0, 4-0 - Delivery Outcome Delivery Outcome: positive: Livebirth - [place] : positive: Placed in direct skin contact with mother, Stimulated, Warmed, [place] used sex: positive: Female - Cord Cord: positive: 3 vessels - Placenta Placenta: positive: Intact, Spontaneous - Estimated Blood Loss Estimated Blood Loss (in cc): 300 - Post Delivery Events Post Delivery Events: positive: No post delivery events - Delivery Comments (Free Text/Narrative) Delivery Comments (Free Text/Narrative): This 23yo @ 39.5wks gestation presented on 12/21/2018 at 0800 for preinduction cervical ripening. Cervix was 1/85/+1, vertex with intact membranes. FHR pattern demonstrated baseline 145 in a Category I pattern throughout labor. 50mcg BC misoprostol administered x 2 total doses. AROM occurred at 1244 and was noted to be a moderate amount of clear fluid. She progressed to c/c/+2 at 1823. Delivery of head with dystocia of shoulders easily relieved with McRobert's resulting in spontaneous vaginal delivery of viable female on 12/21/2018 at 1845. No nuchal cord. Apgars 8/9 at 1 and 5 min respectively. Pitocin administered via IV for hemostasis. The was placed on maternal abdomen, stimulated, dried, and placed skin to skin. The umbilical cord was allowed to stop pulsating at which time it was doubly clamped by CNM and cut by father of the patient. Cord blood was obtained. Placenta delivered spontaneously and intact at 1854. 3VC. EBL 300mL. Uterine fundus firm and there is no excessive bleeding. The perineum, vagina, and cervix were inspected and found to have first degree periurethral extending to periclitoral laceration which was infiltrated with 1% lidocaine and repaired using 4-0 vicryl on SH needle in usual fashion under sterile conditions. In addition there was found to be a second degree perineal laceration which was repaired using 2-[address]-1 needle in standard fashion under sterile conditions. Vaginal and rectal examination following the repair was done. Tissues well approximated. initiated. Family bonding well. Both mother and baby were left in stable condition.
[2018-12-21] MEDS: IBUPROFEN 800 MG TABLET PO SCH (20:13)
[2018-12-22] MEDS: IBUPROFEN 800 MG TABLET PO SCH ×4 (03:58→22:13)
[2018-12-22] MEDS: ACETAMINOPHEN 500 MG TABLET PO SCH ×3 (03:58→20:33)
[2018-12-22] MEDS: SODIUM CHLORIDE FLUSH 0.9% 10 ML SYRINGE IVP SCH (03:59)
[2018-12-22] MEDS: DOCUSATE SODIUM 100 MG CAPSULE PO SCH ×2 (10:03→20:33)
[2018-12-23] MEDS: ACETAMINOPHEN 500 MG TABLET PO SCH ×2 (04:10→13:13)
[2018-12-23] MEDS: IBUPROFEN 800 MG TABLET PO SCH ×3 (04:10→17:01)
--- NOTE | 2018-12-23 07:36 | PROVIDER PROGRESS NOTE ---
Subjective - Subjective Subjective: 12/22/2018 @ 0700 PPD#1 S: Bonding well with baby. without difficulty. Bleeding decreased and is light. Pain well controlled with oral medications. She states she has be en ambulating without difficulty and only slight discomfort to perineum. Sister supportive at the bedside. O: 116/73, T 36.4, HR 16, HR 85 Heart RRR w/o M/G/R, lungs CTAB, bilateral LE's no edema. Perineum intact with moderate edema. Nipples intact bilaterally without cracking or bleeding. Mood is good. A: 23yo PPD#1 s/p TSVD of viable female infant 2nd degree laceration - intact P: Continue routine care and medications. Apply ice packs to perineum throughout the day. Evaluate for discharge home tomorrow. Pt verbalized understanding and denies further questions or concerns at this time. Objective - Vital Signs/Intake & Output Vital Signs: Vital Signs x48h Temp Pulse Resp BP Pulse Ox 12/23/18 04:03 36.7 C 78 16 113/56 L 100 Intake & Output: Intake & Output 12/20/18 12/21/18 12/22/18 12/23/18 23:59 23:59 23:59 23:59 Intake Total 500 500 Output Total 350 Balance 500 150 - Lab Results Fish Bones: 12/21/18 08:55
--- NOTE | 2018-12-23 07:53 | PROVIDER PROGRESS NOTE ---
Subjective - Subjective Subjective: S: Bonding well with baby. She did cluster feed throughout the night but slept a little longer stretch in the marine equipment research engineer hours this morning. She states her bleeding is decreased and is light - denies clots. States her perineum is slightly sore but overall feeling fine. Pain well controlled with oral medications. She is ambulating without difficulty. She is urinating without dif ficulty and has been consistently using her malissa bottle. She is anxious to go home today. O: BP 113/56, T 36.7, HR 78, RR16 Heart RRR w/o M/G/R, lungs CTAB, Abdomen soft and nontender with fundus firm at U-2, Perineum intact with mild edema, Bilateral LE's trace edema. A: 23yo PPD#2 s/p TSVD of viable female infant 2nd degree perineal laceration - intact P: Reviewed self care and warning s/sx. Advised continuation of vitamin while . Advised continued use of Tylenol and Ibuprofen OTC for pain management. Discharge home today on PPD #2. F/u in 1 week for support visit and in 3 weeks for routine visit. Pt and mother present for discharge teaching and both verbalized understanding and agree to above plan. She denies further questions or concerns at this time. Objective - Vital Signs/Intake & Output Vital Signs: Vital Signs x48h Temp Pulse Resp BP Pulse Ox 12/23/18 04:03 36.7 C 78 16 113/56 L 100 Intake & Output: Intake & Output 12/20/18 12/21/18 12/22/18 12/23/18 23:59 23:59 23:59 23:59 Intake Total 500 500 Output Total 350 Balance 500 150 - Lab Results Fish Bones: 12/21/18 08:55
--- NOTE | 2018-12-23 07:54 | Discharge Plan ---
Discharge Plan Disposition: 01 Home, Self Care Condition: Good Diet: Regular Activity Restrictions: No Restrictions Shower Restrictions: No Driving Restrictions: No Weight Bearing: Full Weight No Smoking: If you smoke, Please STOP! Call for help. Follow-up with: Dina Alfredo CNM, ARNP [Provider Admit Priv/Credential] -
[2018-12-23] MEDS: DOCUSATE SODIUM 100 MG CAPSULE PO SCH (10:07)
[2018-12-23 17:13] VITALS: BP 125/76
--- NOTE | 2018-12-23 19:51 | Labor Flowsheet ---
Labor Flowsheet Datetime Report Generated by CPN: 12/23/2018 19:51 Datetime: 12/23/2018 16:54 VITAL SIGNS NBP Sys/Mony/Mean (mmHg): 125 : 76 : 86 Pulse: 81 LaborFlag: Labor Datetime: 12/23/2018 07:49 SpO2 (%): 100 Datetime: 12/21/2018 18:45 Contraction Comments: Pushing contractions Comments: Poor tracing of heart rate during pushing Datetime: 12/21/2018 18:31 Membranes Ruptured Date/Time: 12/21/2018 12:44 Datetime: 12/21/2018 18:24 STAGE 2 Pushing Position: Pushing with Contractions; Pushing Lithotomy Pushing Progress: Descent with Pushing Datetime: 12/21/2018 18:23 VAGINAL EXAM Dilatation (cm): 10.0 Effacement (%): 100 Station: 2 Exam by: Sayda Vaginal Bleeding: Normal Show Cervix, Consistency: Soft Cervix, Position: Anterior Datetime: 12/21/2018 18:19 Patient Care Comments: Jacuzzi Datetime: 12/21/2018 18:15 UTERINE ACTIVITY Monitor Mode: External Frequency (min): 1.5-4 Quality: Strong Duration (sec): 50-120 Pattern: Normal: <= 5 Contractions in 10 Minutes Resting Tone (Palpate): Relaxed ASSESSMENT A Monitor Mode: Telemetry FHR Baseline Rate : 145 Variability: Moderate 6-25 bpm Accelerations: 10X10 Decelerations: None Category: Category I Oxygen Method: Room Air Datetime: 12/21/2018 17:35 Monitor Interventions for FHR: Ultrasound Adjusted MEDICATIONS Antiemetics/Antacids: Zofran (mg) @ 4 Datetime: 12/21/2018 17:10 Patient Position/Activity: Right Lateral Datetime: 12/21/2018 17:05 Respirations: 16 Temperature (C): 36.9 Datetime: 12/21/2018 17:02 Monitor Interventions for UA: [place] Adjusted Datetime: 12/21/2018 16:06 Temperature Route: Oral Vital Sign Comments: Patient just stepped out of warm jacuzzi tub Datetime: 12/21/2018 14:08 PAIN Pain Scale: 7 Pain Presence: Intermittent Pain Type: Cramping Pain Location: Abdomen Pain Coping: Breathing Through Contractions Comfort Measures: Breathing/Relaxation; Family Support Datetime: 12/21/2018 13:57 I/O Interventions: Up to BR Datetime: 12/21/2018 12:44 Membrane Status: Ruptured Membranes Rupture Method: Artificial Amniotic Fluid Color: Clear Amniotic Fluid Amount: Moderate Amniotic Fluid Odor: Normal Datetime: 12/21/2018 12:24 Pain Assessment Comments: "still good" Datetime: 12/21/2018 09:21 Cervical Ripening Agents: Cytotec @ Datetime: 12/21/2018 08:55 PATIENT CARE IV/Blood Work: Labs Drawn with IV Start Datetime: 12/21/2018 08:31 COMMUNICATION Communication: Provider at Bedside Communication Comments: Dina Alfredo CNM, INDUSTRIAL ENGINEERING DIRECTOR, at bedside
--- NOTE | 2018-12-23 22:01 | DISCHARGE SUMMARY ---
Physician: STELLA Bennett DATE OF ADMISSION: 12/21/2018 DATE OF DISCHARGE: 12/23/2018 DIAGNOSES ON ADMISSION 1. A 23-year-old, G1, P0, at 39+5 weeks' gestation. 2. Elective induction of labor with preinduction cervical ripening. 3. Group B streptococcus negative. DIAGNOSIS ON DISCHARGE 1. A 23-year-old, G1, P1-0-0-1, status post spontaneous vaginal delivery on 12/21/2018. 2. Normal recovery. BRIEF HISTORY: She is a patient of [facility] who presented on 12/21/2018 at 0800 for preinduction cervical ripening in anticipation for induction of labor, which was elective. Her cervix was noted to be 1 cm dilated, 85% effaced, +1 station in vertex position with intact membranes. The patient was given 50 mcg of buccal misoprostol q.4 hours for a total of 2 doses. AROM occurred at 1244 and was noted to be a moderate amount of clear fluid. She progressed to spontaneously deliver a viable female infant on 12/21/2018 at 1845. Apgars were 8 and 9 at one and five minutes respectively. The patient had a second-degree perineal laceration that was repaired with 2-0 Vicryl on a CT1 needle in standard fashion under sterile conditions. In addition, she was noted to have a first-degree periurethral extending to periclitoral laceration, which was repaired using 4-0 Vicryl on an SH needle in standard fashion under sterile conditions. EBL was 300 mL She has been doing well in her course. She is ambulating and tolerating a regular diet. She is urinating without difficulty. Her lochia is normal. Her pain is well controlled with oral medications. She will be discharged home today on day 2 with instructions to take ibuprofen and Tylenol [id number]. She was advised to continue her vitamin while . She intends to follow up with myself at [facility] in 1 week for support visit in 3 weeks for routine visit. She has been given precautions to call if she has any worsening fevers, chills, abdominal pain, increased bleeding, or foul-smelling vaginal lochia. TD: 12/23/2018 17:18 MTDBaron
== END 2018-12-23 18:40 | disposition home or self-care (01) | DRG 807 ==
LOC: WFO 07:54 → FBP 07:59 → WFO 08:14 → FBP 08:15 → OBSVTOIN 12:48
PROVIDERS: ADMIT Nurse Practitioner Obstetrics & Gynecology; ATTEND Nurse Practitioner Obstetrics & Gynecology
PROC: 10E0XZZ Delivery of Products of Conception, External Approach (ICD-10-PCS; principal; 2018-12-21)
PROC: 0KQM0ZZ Repair Perineum Muscle, Open Approach (ICD-10-PCS; 2018-12-21)
PROC: 0HQ9XZZ Repair Perineum Skin, External Approach (ICD-10-PCS; 2018-12-21)
PROC: 10907ZC Drainage of Amniotic Fluid, Therapeutic from Products of Conception, Via Natural or Artificial Opening (ICD-10-PCS; 2018-12-21)
DX: O98.32 Other infections with a predominantly sexual mode of transmission complicating childbirth (principal); Z37.0 Single live birth; A60.00 Herpesviral infection of urogenital system, unspecified; O66.0 Obstructed labor due to shoulder dystocia; O70.1 Second degree perineal laceration during delivery; O70.0 First degree perineal laceration during delivery; Z3A.39 39 weeks gestation of pregnancy; Z79.899 Other long term (current) drug therapy
CPT/HCPCS: 85025; A9270; G0378; G0379; J7120

== ENCOUNTER 2019-05-01 14:25 | Emergency (ER) | payer MEDICAID, OTHER ==
[2019-05-01 14:55] VITALS: BP 128/71
[2019-05-01] MEDS ORDERED: PENICILLIN VK 250 MG TABLET PO STA (16:21)
--- NOTE | 2019-05-01 16:22 | ED Physician Documentation ---
History of Present Illness - Stated complaint Stated Complaint: SORE THROAT - Chief complaint Chief Complaint: Heent - History obtained from History obtained from: Patient - History of Present Illness Timing: Yesterday Pain level max: 5 Pain level now: 5 - Additonal information Additional information: 24-year-old female with a sore throat since yesterday. Worsening today. Fevers at home. No cough. Mild nausea. No vomiting. No diarrhea. No abdominal pain. Has had strep in the past. Worse with swallowing. Better with rest. She is not or breast-feeding. 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 ) - Past Surgical History Past Surgical History: Yes - Present Medications Home Medications: Ambulatory Orders Medication Instructions Recorded Confirmed Pnv No.122/Iron/Folic Acid 08/29/18 [ Multi Tablet] Ondansetron Odt [Zofran] 4 mg TL Q6H PRN #10 tablet 05/01/19 Penicillin V Potassium 500 mg PO Q6HR #40 tablet 05/01/19 - Allergies Allergies/Adverse Reactions: Allergies Allergy/AdvReac Type Severity Reaction Status Date / Time No Known Drug Allergies Allergy Verified 08/29/18 09:01 - Social History Does the pt smoke?: No Smoking Status: Never smoker Does the pt drink ETOH?: No Does the pt have substance abuse?: No - Immunizations Immunizations are current?: Yes - POLST Patient has POLST: No PD ED PE NORMAL - Vitals Vital signs reviewed: Yes - General General: Alert and oriented X 3, No acute distress - HEENT HEENT: Moist mucous membranes, Other (Posterior pharyngeal erythema with tonsillar exudates. Uvula midline. Normal phonation. No trismus.) - Neck Neck: Supple, no meningeal sign, Other (Shotty anterior cervical lymphadenopathy) - Cardiac Cardiac: RRR, Strong equal pulses - Respiratory Respiratory: No respiratory distress, Clear bilaterally - Abdomen Abdomen: Soft, Non tender, Non distended - Derm Derm: Warm and dry - Neuro Neuro: Alert and oriented X 3 - Psych Psych: Normal mood, Normal affect Results - Vitals Vitals: Vital Signs - 24 hr 05/01/19 14:49 Temperature 38.1 C H Heart Rate 102 H Respiratory 18 Rate Blood Pressure 128/71 O2 Saturation 100 Oxygen O2 Source Room air - Labs Labs: Laboratory Tests 05/01/19 14:56 Group A Strep Rapid POSITIVE H PD MEDICAL DECISION MAKING - ED course Complexity details: reviewed results, re-evaluated patient, considered differential, d/w patient ED course: 24-year-old female with strep pharyngitis. Will place on antibiotics for home. She is well-appearing, nontoxic. Tolerating p.o. without difficulty. No evidence of peritonsillar abscess or retropharyngeal abscess. Patient counseled regarding signs and symptoms for which I believe and urgent re-evaluation would be necessary. Patient with good understanding of and agreement to plan and is comfortable going home at this time This document was made in part using voice recognition software. While efforts are made to proofread this document, sound alike and grammatical errors may occur. Departure - Departure Disposition: 01 Home, Self Care Clinical Impression: Strep pharyngitis Condition: Good Instructions: ED Strep Pharyngitis Conf Follow-Up: Your,doctor in 1 week [Other] Prescriptions: Penicillin V Potassium 500 mg PO Q6HR #40 tablet Ondansetron Odt [Zofran] 4 mg TL Q6H PRN #10 tablet PRN Reason: Nausea / Vomiting Comments: Take all antibiotics until gone. Return if you worsen. You can use Motrin or Tylenol as needed for pain. Drink plenty of fluids. Follow-up with your doctor in 1 week if you are not better.
== END 2019-05-01 16:31 | disposition home or self-care (01) ==
LOC: ED 14:25
DX: J02.0 Streptococcal pharyngitis (principal)
CPT/HCPCS: 87430; 99283; 99284; A9270

== ENCOUNTER 2019-08-31 09:00 | Outpatient (CLI) | payer OTHER, MEDICAID | END 2019-08-31 23:59 | disposition home or self-care (01) | LOC: LAB.R 09:00 → MERGE 19:11 → LAB.R 23:59 | PROVIDERS: ATTEND Nurse Practitioner Obstetrics & Gynecology | DX: N39.0 Urinary tract infection, site not specified (principal) | CPT/HCPCS: 87086 ==